=== PATIENT | female | born 1950 | race Caucasian/White ===

== ENCOUNTER → 2020-06-19 | Outpatient (CLI) | payer MEDICARE ==
[~2020-06-19] MED LIST: ADULT LOW DOSE81 MG PO; HYDROCODON-ACE1 EAC5 PO; LISINOPRIL20 MG PO; MECLIZINE HCL25 M1 PO; NOHOMEMEDICATIONS; NORVASC10 MG PO; PROAIR HFA8.5 GM INH; SYMBICORT160 MCG/4. INH; ZANAFLEX4 M1 PO
== END ==
LOC: M.PC 10:54
PROVIDERS: ATTEND Anesthesiology Pain Medicine
DX: M54.31 Sciatica, right side (principal); I10 Essential (primary) hypertension; M19.90 Unspecified osteoarthritis, unspecified site; G89.29 Other chronic pain; D69.6 Thrombocytopenia, unspecified; G47.30 Sleep apnea, unspecified; E78.5 Hyperlipidemia, unspecified; N20.0 Calculus of kidney; E66.9 Obesity, unspecified; C44.310 Basal cell carcinoma of skin of unspecified parts of face; M43.16 Spondylolisthesis, lumbar region; Z72.0 Tobacco use